=== PATIENT | male | born 1955 | race Caucasian/White ===

== ENCOUNTER 2024-03-18 12:03 | Emergency (ER) | payer MEDICARE, OTHER, SELFPAY ==
[2024-03-18 12:08] VITALS: BP 149/81
[2024-03-18 12:42] LABS: % Basophils 0.4 % (0-2); % Eosinophils 1.9 % (0-6); % Immature Granulocytes 0.4 % (0-0.5); % Lymphocytes 32.8 % (20.5-51.1); % Monocytes 8.3 % (1.7-9.3); % Neutrophils 56.2 % (42.2-75.2); Absolute Eosinophils 0.1 10^3/uL (0-0.7); Absolute Lymphocytes 1.7 10^3/uL (1.2-3.4); Absolute Monocytes 0.4 10^3/uL (0.1-0.6); Hematocrit 43.5 % (39.0-52.0); Hemoglobin 15.4 g/dL (13.0-18.0); Mean Corp Hgb Conc. 35.4 g/dL (33.0-37.0); Mean Corpuscular Hgb 30.4 pg (27.0-31.0); Mean Corpuscular Volume 85.8 fL (80.0-94.0); Mean Platelet Volume 9.7 fL (7.4-10.4); Nucleated Red Blood Cells % 0 % (-); Platelet Count 199 10^3/uL (130-400); Red Blood Cell Count 5.07 10^6/uL (4.70-6.10); Red Cell Dist. Width 12.5 % (11.5-14.5); White Blood Cell Count 5.3 10^3/uL (4.8-10.8)
[2024-03-18 13:01] LABS: ALT (SGPT) 27 U/L (0-50); AST (SGOT) 26 U/L (17-59); Albumin 4.9 g/dl (3.5-5.0); Alkaline Phosphatase 78 U/L (38-126); Blood Urea Nitrogen 24 mg/dl (9-20); Calcium 10.1 mg/dl (8.4-10.2); Carbon Dioxide 26 mmol/L (22-30); Chloride 104 mmol/L (98-107); Glucose 115 mg/dl (70-99); Potassium 4.5 mmol/L (3.5-5.1); Sodium 143 mmol/L (135-145); Total Bilirubin 1.3 mg/dl (0.2-1.3); Total Protein 7.2 g/dl (6.3-8.2); eGFR > 60.00
--- NOTE | 2024-03-18 13:12 | ED.GENMED ---
History of Present Illness
General
Chief Complaint: Fainting/Passed Out
Source: patient and witness
Time Seen by Provider: 03/18/24 13:00
History of Present Illness
History of Present Illness:
68yoM with a history of hypertension presenting for evaluation after a syncopal episode. The episode occurred around 11:30am this morning. Patient was pulling a box with a coworker. He stepped back and his foot got caught and he tripped. He fell on
his R elbow and buttocks. Patient and coworker deny any head strike. He got up immediately after the fall and sat on a step. While sitting on the step, he started to feel lightheaded. He then had a witnessed syncopal episode lasting approximately 2
minutes. Coworkers witnessed the event. There was no seizure-like activity, incontinence, tongue biting, or postictal period. Coworker states that he appeared pale after the episode but quickly regained his normal coloring. Patient is asymptomatic
at this time. He denies any chest pain, palpitations, or shortness of breath before or after the episode. His only medication is lisinopril.
Patient had a nuclear stress test is 2019. No ischemic was noted on the stress test and EF was 59% at that time.
Past History
Past History
ED Past Medical History: HTN; Negative CAD
ED Past Surgical History: None
Social History
Personal:
Living: with family
Employment: Employed
Phy Exam
General Physical Exam
General Presentation: well appearing and no apparent distress
General age: appears stated age
General Skin: warm and dry
General Habitus: normal
General Mental: alert
ENT Exam
ENT Exam: normocephalic (No external signs of head trauma)
Additional ENT: No cervical spine tenderness with full ROM
Eye Exam
Eye Exam: PERRL and conjunctiva normal
Cardiovascular Exam
Cardiovascular Exam: regular rate/rhythm and no murmur
Pulmonary Exam
Pulmonary Exam: lungs clear, no respiratory distress, no rales, no crackles, no rhonchi and no wheezing
Neurological Exam
Neurological Exam: alert, oriented x3 and no motor deficits
[place] Coma Scale
Eye Opening: Spontaneous
Verbal Response: Oriented
Motor Response: Obeys Commands
GCS Total Score: 15
Musculoskeletal Exam
Musculoskeletal Exam: other (Abrasions noted to R elbow. R elbow ROM is normal without any tenderness. )
Skin Exam
Skin Exam: normal color and warm/dry
Psychiatric Exam
Psychiatric Exam: normal mood/affect
Course
Orders/Labs/Results
Orders:
Orders
03/18/24 12:05
EKG [Electrocardiogram (*1)] Urgent
Reason for Study: Syncope
EKG- Treatment ONCE
03/18/24 12:20
CMP [Comprehensive Metabolic Panel] Urgent
Complete Blood Count/With Diff Urgent
03/18/24 12:35
Troponin I Urgent
03/18/24 13:12
Cardiac Monitoring- Treatment ONCE
03/18/24 13:21
Electrocardiogram (*1) Urgent
Reason for Study: Syncope
EKG- Treatment ONCE
Orthostatic VS- Treatment ONCE
Abnormal Lab Results
03/18/24
12:20
BUN 24 H mg/dl
(9-20)
Glucose 115 H mg/dl
(70-99)
03/18/24 12:20
03/18/24 12:20
Vital Signs
Initial and Last Documented VS:
Initial Vital Signs
Pulse Resp BP Pulse Ox
59 16 149/81 100
03/18/24 12:08 03/18/24 12:08 03/18/24 12:08 03/18/24 12:08
Last Documented Vital Signs
Pulse Resp BP Pulse Ox
51 17 139/88 100
03/18/24 13:45 03/18/24 13:45 03/18/24 13:42 03/18/24 12:08
MDM/Problems Addressed
Differential Diagnosis Includes:
68yoM here after a syncopal episode that occurred 1.5 hours ago. Preceded by a mechanical fall in which he tripped and fell on buttocks. Patient denies head strike. Episode was also witnessed by coworker who also denies any head injury. He started
to feel lightheaded and then lost consciousness. No seizure activity. Episode lasted 2 minutes. Now back to baseline and asymptomatic. He is bradycardic in triage with otherwise stable vitals. He is well appearing in no distress. No external signs
of head trauma. Exam otherwise reassuring. Differential diagnosis includes but is not limited to: vasovagal episode, orthostatic hypotension, cardiogenic, doubt seizure
Initial ED plan: EKG obtained in triage shows sinus bradycardia with a HR of 48. No ischemic changes or ectopy noted. Check cardiac labs and recheck EKG. Check orthostatic vital signs and place on shelter monitor.
*EKG
Interpreted by ED Provider?: Yes
EKG Intrepretation Date: 03/18/24
Heart Rate: 48
Rate: bradycardiac
Rhythm: sinus
[place]: normal axis
Interval: normal interval
QRS Pattern: normal QRS
Ischemia: no ischemia
*Critical Care Note
Total Time (30-74mins, 75-104mins- exclusive of procedures): Not Applicable
Update Note
Update Note:
Labs unremarkable including normal electrolytes and glucose. Repeat EKG unchanged. Troponin WNL. No orthostatic hypotension on orthostatic VS. Patient remains asymptomatic on reassessment. No indication for hospitalization. Advised close PCP f/u
within 2-3 days. Strict ED return precautions discussed including any recurrent episodes and chest pain. He expressed understanding and is agreeable to plan. Patient discharged in stable condition.
ED Attending Note
-
Portions of this chart may have been created with voice recognition software.� Occasional wrong word or��sound alike� substitutions may have occurred due to the inherent limitations of voice recognition software.
Discharge Plan
Departure
Patient Disposition: Home (Routine Discharge)
Date of Disposition: 03/18/24
Time of Disposition: 14:01
Patient with high blood pressure during this ER visit?: Yes
Discharge Problem:
Syncope
Instructions: Syncope (Fainting) (DC)
Prescriptions:
No Action
lisinopril 20 MG tablet
20 mg PO DAILY
venlafaxine [Effexor XR] 150 MG capsule,extended release 24hr
150 mg PO DAILY
fexofenadine [Raysa] 30 MG tablet
30 mg PO DAILY
lisdexamfetamine [Vyvanse] 50 MG capsule
50 mg PO DAILY
Referrals:
Rey Hernandez DO [Family Provider] -
Activity Restrictions/Additional Instructions:
Please follow-up with your family doctor in the next 2-3 days. Return to the ER immediately with any worsening symptoms, chest pain, severe headache, or recurrent episodes of passing out.
Interventions
Interventions:
*Risk Screen - Suicide Last Done: 03/18/24 13:33
*General Assessment Last Done: 03/18/24 13:35
*Neglect/Abuse Screening Last Done: 03/18/24 13:33
ED- Fall Risk Assessment Last Done: 03/18/24 13:33
*ED COVID-19 Vaccine History Last Done: 03/18/24 13:33
ED- Cardiac Assessment Last Done: 03/18/24 13:33
ED- Neurological Assessment Last Done: 03/18/24 13:33
Discharge Date and Time
Print Language: SENEGALESE
[2024-03-18 13:30] LABS: Troponin I < 0.012 ng/ml
[2024-03-18 13:41] VITALS: BP 155/86
[2024-03-18 13:42] VITALS: BP 139/88
[2024-03-18 13:48] VITALS: BP 130/80; BP 139/88; BP 155/86; PULSE 47; PULSE 48; PULSE 50
[2024-03-18 14:00] VITALS: BP 139/88
--- NOTE | 2024-03-18 14:10 | EDRN ---
Reviewed discharge instructions with patient. Verbalized understanding. Ambulated with steady gait to the lobby.
== END 2024-03-18 14:10 | disposition home or self-care (01) ==
LOC: EMR 12:03
PROVIDERS: Emergency Medicine; Physician Assistant; EMERGENCY PHYSICIAN Student in an Organized Health Care Education/Training Program; FAMILY PHYSICIAN Family Medicine
DX: R55 Syncope and collapse (principal); I10 Essential (primary) hypertension; W01.0XXA Fall on same level from slipping, tripping and stumbling without subsequent striking against object, initial encounter
CPT/HCPCS: 99284; 80053; 84484; 85025; 93005